=== PATIENT | female | born 2000 | race Caucasian/White ===

== ENCOUNTER 2021-08-21 01:45 | Emergency (ER) | payer MEDICAID ==
[~2021-08-21] VITALS: Ht 160 cm; Wt 47.6 kg
[2021-08-21 03:00] VITALS: BP 119/76
== END 2021-08-21 03:45 | disposition home or self-care (01) ==
LOC: ER 01:47
DX: R07.89 Other chest pain (principal); K21.00 Gastro-esophageal reflux disease with esophagitis, without bleeding; M25.511 Pain in right shoulder; R68.84 Jaw pain
CPT/HCPCS: 93005

== ENCOUNTER 2024-08-27 22:46 | Inpatient (IN) | payer MEDICAID ==
[~2024-08-27] VITALS: Ht 157.5 cm; Wt 44.3 kg
--- NOTE | 2024-08-27 23:10 | ED.PDOC ---
GI ASSESSMENT HPI Comments 24-year-old female who came to ER for nausea and vomiting. Patient states for the past 3 days she has loss of appetite. Few hours ago patient started having epigastric abdominal pain, constant, sharp, associated bouts of nausea, vomiting, and loose nonbloody diarrhea. Patient denies being . Denies any history of abdominal surgeries. Chief Complaint: Nausea/Vomiting Time Seen by MD: 23:09 Primary Care Provider: Yassine Reviewed Notes: Nurses Notes Allergies: Coded Allergies: NO KNOWN ALLERGIES (Unverified , 08/21/21) Information Source: Patient Mode of Arrival: Ambulatory Timing: Days Duration: Intermittent Prehospital treatment: None Quality: Aching, Sharp Vomitus: Watery Stool: Loose, Watery Recent: None Recent Hx of: None Pain Location: Epigastric Modifying Factors: Nothing Associated sign and symptoms: Nausea, Vomiting, Diarrhea, Epitaxis, Anorexia Past Medical History PAST MEDICAL HISTORY: Denies Surgical History: Denies all surgeries HIDES SOAKER History: No Pertinent HIDES SOAKER History Family History Family History: Reviewed,noncontributory to illness Social History Smoker: Non-Smoker Alcohol: Denies ETOH Use Drugs: Marijuana Lives In: Home Constitutional: denies: chills, diaphoresis, fatigue, fever, malaise, sweats, weakness, others EENTM: denies: blurred vision, double vision, ear bleeding, ear discharge, ear drainage, ear pain, ear ringing, eye pain, eye redness, hearing loss, mouth pain, mouth swelling, nasal discharge, nose bleeding, nose congestion, nose pain, photophobia, tearing, throat pain, throat swelling, voice changes, others Respiratory: denies: cough, hemoptysis, orthopnea, SOB at rest, shortness of breath, SOB with excertion, stridor, wheezing, others Cardiovascular: denies: chest pain, dizzy spells, diaphoresis, Dyspnea on exertion, edema, irregular heart beat, left arm pain, lightheadedness, palpitations, PND, syncope, others Gastrointestinal: reports: abdominal pain, diarrhea, nausea, poor appetite, vomiting; denies: abdomen distended, blood streaked bowels, constipated, dysphagia, difficulty swallowing, hematemesis, melena, poor fluid intake, rectal bleeding, rectal pain, others Genitourinary: denies: abnormal vagina bleeding, burning, dyspareunia, dysuria, flank pain, frequency, hematuria, incontinence, pain, , vagina discharge, urgency, others Neurological: denies: dizziness, fainting, headache, left sided numbness, left sided weakness, numbness, paresthesia, pre-existing deficit, right sided numbness, right sided weakness, seizure, speech problems, tingling, tremors, w eakness, others Musculoskeletal: denies: back pain, gout, joint pain, joint swelling, muscle pain, muscle stiffness, neck pain, others Integumetry: denies: bruises, change in color, change in hair/nails, dryness, laceration, lesions, lumps, rash, wounds, others Allergic/Immunocompromised: denies: Difficulty Healing, Frequent Infections, Hives, Itching, others Hematologic/Lymphatic: denies: anemia, blood clots, easy bleeding, easy bruising, swollen glands, others Endocrine: denies: excessive hunger, excessive sweating, excessive thirst, excessive urination, flushing, intolerance to cold, intolerance to heat, unexplained weight gain, unexplained weight loss, others Psychiatric: denies: anxiety, bipolar disorder, depression, hopeless, panic disorder, schizophrenia, sleepless, suicidal, others Physical Exam General Appearance: No Apparent Distress, Normal HEENT: Normal ENT Inspection, Pharynx Normal, TMs Normal Neck: Full Range of Motion, Non-Tender, Normal, Normal Inspection Respiratory: Chest Non-Tender, Lungs Clear, No Accessory Muscle Use, No Respiratory Distress, Normal Breath Sounds Cardiovascular: No Edema, No JVD, No Murmur, No Gallop, Normal Peripheral Pulses, Regular Rate/Rhythm Breast Exam: Deferred Gastrointestinal: Epigastric, No Organomegaly, No Pulsatile Mass, Normal Bowel Sounds, Soft, Tenderness Genitalia: Deferred Pelvic: Deferred Rectal: Deferred Extremities: No calf tenderness, Normal capillary refill, Normal inspection, Normal range of motion, Non-tender, No pedal edema Musculoskeletal : Apperance: Normal 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 Was a procedure done?: No GI differential Dx Differential Diagnosis: Diverticular disease, Gastritis/PUD, Gastroenteritis, Pancreatitis, UTI, Urolithiasis X-Ray, Labs, Meds, VS Vital Signs Date Time Temp Pulse Resp B/P (MAP) Pulse Ox O2 Delivery O2 Flow Rate FiO2 08/28/24 00:23 72 16 98 Room Air 08/28/24 00:21 98.6 72 16 138/83 (101) 98 98.6 08/27/24 22:56 97.5 69 22 147/99 (115) 100 Lab Test 08/27/24 23:12 08/27/24 23:00 Range/Units White Blood Count 19.6 H 4.4-10.8 10^3/uL Red Blood Count 4.95 4.0-5.20 10^6/uL Hemoglobin 16.0 12.2-16.2 g/dL Hematocrit 46.7 H 36.0-46.0 % Mean Corpuscular Volume 94.3 80.0-100.0 fL Mean Corpuscular Hemoglobin 32.4 H 28.0-32.0 pg Mean Corpuscular Hemoglobin Concent 34.3 32.0-36.0 g/dL Red Cell Distribution Width 12.8 11.8-14.3 % Platelet Count 378 140-450 10^3/uL Mean Platelet Volume 8.4 6.9-10.8 fL Neutrophils (%) (Auto) 37.0-80.0 % Lymphocytes (%) (Auto) 10.0-50.0 % Monocytes (%) (Auto) 0.0-12.0 % Basophils (%) (Auto) 0.0-2.0 % Neutrophils # (Auto) 1.6-8.6 10 ^3/uL Lymphocytes # (Auto) 0.4-5.4 10 ^3/uL Monocytes # (Auto) 0-1.3 10 ^3/uL Differential Total Cells Counted Pending Neutrophils % (Manual) Pending Band Neutrophils % (Manual) Pending Lymphocytes % (Manual) Pending Monocytes % (Manual) Pending Eosinophils % (Manual) Pending Basophils % (Manual) Pending Metamyelocytes % (manual) Pending Myelocytes % (Manual) Pending Promyelocytes % (Manual) Pending Blast Cells % (Manual) Pending Reactive Lymphocytes Pending Platelet Estimate Pending Sodium Level 138 136-145 mmol/L Potassium Level 5.2 H 3.5-5.1 mmol/L Chloride Level 104 98-107 mmol/L Carbon Dioxide Level 18 L 20-31 mmol/L Anion Gap 16 H 5-15 Blood Urea Nitrogen 16 9-23 mg/dL Creatinine 1.04 H 0.550-1.02 mg/dL Glomerular Filtration Rate Calc 77 >90 mL/min BUN/Creatinine Ratio 15.4 10.0-20.0 Serum Glucose 123 H 74-106 mg/dL Calcium Level 11.1 H 8.7-10.4 mg/dL Lipase 27 12-53 U/L Urine Color Light-brown Yellow Urine Clarity Turbid H Clear Urine pH 5.5 5.0-9.0 Urine Specific [place] 1.031 1.001-1.035 Urine Protein 2+ H Negative Urine Ketones 4+ H Negative Urine Blood 3+ H Negative /uL Urine Nitrite Negative Negative Urine Bilirubin Negative Negative Urine Urobilinogen Normal Negative mg/dL Urine Leukocyte Esterase 2+ Negative /uL Urine RBC 126 0 - 4 /hpf Urine WBC 51 0 - 5 /hpf Urine Squamous Epithelial Cells Few <5 /hpf Urine Bacteria Few H None Seen /hpf Urine Hyaline Casts Few 0 - 2 /lpf Urine Mucus Few None Seen Urine Glucose Normal Normal mg/dL Urine Test Negative Negative Urine Opiates Screen Neg NEGATIVE Urine Fentanyl Screen Neg NEGATIVE Urine Barbiturates Screen Neg NEGATIVE Urine Phencyclidine Screen Neg NEGATIVE Urine Amphetamines Screen Neg NEGATIVE Urine Benzodiazepines Screen Neg NEGATIVE Urine Cocaine Screen Neg NEGATIVE Urine Cannabinoids Screen Pos NEGATIVE Current Medications Medications (Trade) Dose Ordered Sig/Janet Route Start Time Stop Time Status Last Admin Sodium Chloride 1,000 ml @ 1,000 mls/hr Q1H ONCE IV 08/27/24 23:15 08/28/24 00:14 DC 08/28/24 00:13 Ondansetron HCl (Zofran) 4 mg ONCE ONCE IV 08/27/24 23:15 08/27/24 23:16 DC 08/28/24 00:11 Famotidine (Pepcid Injection) 20 mg ONCE ONCE IV 08/27/24 23:15 08/27/24 23:16 DC 08/28/24 00:12 Time of 1ST Reevaluation: 23:07 Reevaluation 1ST: Unchanged Patient Education/Counseling: Diagnosis, Treatment Family Education/Counseling: No Family Present Departure 1 Departure Time of Disposition: 01:20 (Patient presented with abdominal pain that was concerning for possible appendicits, gastritis, cholecystitis, colitis, gastroenteritis, sbo, or orther possible surgical emergency. Data: 1. I ordered and reviewed the result of at least 3 labs including a CBC, BMP, and Urinalysis. 2. I independently interpreted the following tests: Ultrasound is concerning for hepatitis.Risk:This patient has a high risk of morbidity due to further diagnostic testing or treatment and may suffer from an acute abdominal process disorder. Workup reveals concern for hepatitis or infectious colitis and patient should be admitted for further workup. and possible expert consultation. ) Impression: Primary Impression: Acute epigastric pain Additional Impression: Projectile vomiting with nausea Disposition: ADMITTED INPATIENT Admit to: Med Surg Condition: Serious Critical Care Note Critical Care Time?: Yes Critical care comment: Acute abdominal pain Authorized and Performed by: Savannah Samayoa MD Total critical care time: Approximately 38 minutes Due to a high probability of clinically significant, life threatening deter ioration, the patient required my highest level of preparedness to intervene emergently and I personally spent this critical care time directly and personally managing the patient. This critical care time included obtaining a history; examining the patient; pulse oximetry; ordering and review of studies; arranging urgent treatment with development of a management plan; evaluation of patient's response to treatment; frequent reassessment; and, discussions with other providers. This critical care time was performed to assess and manage the high probability of imminent, life-threatening deterioration that could result in multi-organ fa ilure. It was exclusive of separately billable procedures and treating other patients and teaching time. Please see my other sections and the rest of the note for further information on patient assessment and treatment. Stability Stability form required: No Heart Score Heart Score: Heart Score Response (Comments) Value History N/A 0 EKG N/A 0 Age N/A 0 Risk Factors N/A 0 Troponin N/A 0 Total 0 I personally scribed for SAVANNAH SAMAYOA MD ([email or web address]) on 08/27/24 at 23:10. Electronically submitted by Brennen Harris ([email or web address]). SAVANNAH SAMAYOA MD Aug 27, 2024 23:10
[2024-08-27 23:20] LABS: Urine Bacteria FEW /hpf (None Seen); Urine Blood 3+ /uL (Negative); Urine Clarity Turbid (Clear); Urine Color Light-Brown (Yellow); Urine Hyaline Cast FEW /lpf (0 - 2); Urine Mucus FEW (None Seen); Urine Protein, UAD 2+ (Negative); Urine Specific Gravity 1.031 (1.001-1.035); Urine Urobilinogen Normal (Negative); Urine WBC 51 /hpf (0 - 5); Urine pH 5.5 (5.0-9.0)
[2024-08-27 23:21] LABS: Amphetamine Screen, Urine Neg (NEGATIVE); Benzodiazephine Screen, Urine Neg (NEGATIVE); Cannabinoid Screen, Urine Pos (NEGATIVE); Cocaine Screen, Urine Neg (NEGATIVE); Opiate Scree,Urine Neg (NEGATIVE); Phencyclidine Screen, Urine Neg (NEGATIVE)
[2024-08-27 23:30] LABS: Barbiturate Scree,Urine Neg (NEGATIVE)
[2024-08-27 23:33] LABS: Hematocrit 46.7 % (36.0-46.0); Mean Corpuscular Hemoglobin 32.4 pg (28.0-32.0); Mean Corpuscular Hgb Conc. 34.3 g/dL (32.0-36.0); Mean Corpuscular Volume 94.3 fL (80.0-100.0); Platelet Count (auto) 378 10^3/uL (140-450); Red Blood Cells 4.95 10^6/uL (4.0-5.20); Red Cell Distribution Width 12.8 % (11.8-14.3); White Blood Cell 19.6 10^3/uL (4.4-10.8)
[2024-08-27 23:34] LABS: Basophils % (manual) 0 (0.0-2.0); Blast Cells 0; Eosinophils % (manual) 0 (0-7); Metamyelocytes % 0; Myelocytes % 0; Promyelocytes % 0
[2024-08-27 23:37] LABS: Chloride 104 mmol/L (98-107); Potassium 5.2 mmol/L (3.5-5.1); Sodium 138 mmol/L (136-145)
[2024-08-27 23:38] LABS: Anion Gap 16 (5-15); Calcium 11.1 mg/dL (8.7-10.4); Carbon Dioxide 18 mmol/L (20-31)
[2024-08-27 23:43] LABS: BUN/Creatinine Ratio 15.4 (10.0-20.0); Blood Urea Nitrogen 16 mg/dL (9-23); Glucose 123 mg/dL (74-106); Lipase 27 U/L (12-53)
[2024-08-28] MEDS: ONDANSETRON HCL 4 MG/2 ML VIAL IV ONE (00:11)
[2024-08-28] MEDS: FAMOTIDINE (10MG/ML) 2ML VL IV ONE (00:12)
[2024-08-28] MEDS: SODIUM CHLORIDE 0.9% 1,000 ML IV ONE (00:13)
--- NOTE | 2024-08-28 00:47 | DVH ---
RIGHT UPPER QUADRANT ABDOMINAL ULTRASOUND CLINICAL HISTORY: ruq pain COMPARISON: None TECHNIQUE: Grayscale and color Doppler ultrasound imaging of the right upper quadrant is performed. FINDINGS: Pancreas: Visualized portions appear grossly unremarkable. Liver: Starry dominique ( centrilobular) appearance of the liver is noted. No discrete hepatic lesions as v isualized. The portal vein appears patent. Gallbladder: 4 mm intraluminal echogenic structure near the gallbladder neck. No sonographic Ward's sign reported. No gallbladder wall thickening. Common bile duct: Nondilated. Right Kidney: Measures 9.4 cm in length. No hydronephrosis. Right upper quadrant Inferior vena cava: Visualized portions appear patent. IMPRESSION: Centrilobular pattern of the liver. Although this is usually seen with acute hepatitis, the different ial diagnosis is broad and includes various other infiltrative, inflammatory and infectious processes . Please correlate clinically. Small gallbladder polyp versus adherent calculus near the neck. No other sonographic evidence of chol ecystitis at this time. HS:Y
[2024-08-28 01:22] LABS: Band Neutrophils % (manual) 1; Lymphocytes % (manual) 3 (10.0-50.0); Monocytes % (manual) 1 (0-12); Platelet Estimate Adequate; Reactive Lymphocytes 1; Smudge Cells 3 /100 WBC
[2024-08-28] MEDS: MORPHINE SULFATE 4 MG/ML SYR/VIAL IV ONE (01:30)
[2024-08-28 01:55] VITALS: PULSE 74; RESP 16; O2SAT 98
[2024-08-28] MEDS: metroNIDAZOLE 500MG/100ML 100 ML IV ONE (02:05)
[2024-08-28 02:08] LABS: Alanine Aminotransferase 45 U/L (7-40); Albumin 4.7 g/dL (3.2-4.8); Alkaline Phosphatase 55 U/L (46-116); Anion Gap 15 (5-15); Aspartate Aminotransferase 29 U/L (13-40); BUN/Creatinine Ratio 18.4 (10.0-20.0); Blood Urea Nitrogen 16 mg/dL (9-23); Calcium 9.3 mg/dL (8.7-10.4); Carbon Dioxide 18 mmol/L (20-31); Chloride 108 mmol/L (98-107); Glucose 88 mg/dL (74-106); Potassium 4.1 mmol/L (3.5-5.1); Sodium 141 mmol/L (136-145); Total Protein 6.9 g/dL (5.7-8.2)
[2024-08-28] MEDS: ceFAZolin 2 GM/D5W50ml 50 ML IV ONE (03:07)
[2024-08-28] MEDS ORDERED: HYDROcodone-ACET 5/325MG TAB PO PRN (04:30)
[2024-08-28] MEDS ORDERED: MORPHINE SULFATE INJ 2 MG/ml SYRG IV PRN ×2 (04:30)
[2024-08-28] MEDS ORDERED: ONDANSETRON HCL 4 MG/2 ML VIAL IV PRN (04:30)
[2024-08-28] MEDS ORDERED: NITROGLYCERIN 0.4 MG SL TAB SL PRN (04:30)
[2024-08-28] MEDS ORDERED: ACETAMINOPHEN 325 MG TAB PO PRN (04:30)
[2024-08-28] MEDS: SODIUM CHLORIDE 0.9% 1,000 ML IV SCH (04:44)
--- NOTE | 2024-08-28 04:49 | DVHHPRES ---
History of Present Illness Resident Creating Document: GEORGIE CARTAGENA RESIDENT History of Present Illness This is a 24-year-old female with no significant past medical history presented to the ED with a chief complaint nausea and vomiting more than 7 times since morning prior to this admission. She states that for last 2 days she lost her appetite and started today epigastric pain which is central, localized ,7/10 ,colicky in nature and associated with nausea and vomiting and 1 episode of loose stool without any aggravating and relieving factors. She is currently menstruating and mentioned never had this type of pain before. Patient denies chest pain, shortness of breath, dizziness, blood in urine, dysuria, any sick contact or any traveling history recently. She also denies eating any outside food or trying any new food. Past Medical History None Past Surgical History None Family History None Past Social History Smoke weeds every day, nonalcoholic and never tried any other drugs Lives with parents Review of Systems Constitutional: No: Fever, Chills, Sweats, Weakness, Malaise, Other Eyes: No: Pain, Vision change, Conjunctivae inflammation, Eyelid inflammation, Other, Redness ENT: No: Ear pain, Ear discharge, Nose pain, Nose discharge, Nose congestion, Mouth pain, Mouth swelling, Throat pain, Throat swelling, Other Respiratory: No: Cough, Dry, Shortness of breath, SOB with excertion, Wheezing, Hemoptysis, Pleuritic Pain, Sputum, Wheezing, Other Cardiovascular: No: Chest Pain, Palpitations, Orthopnea, Paroxysmal Noc. Dyspnea, Edema, Lt Headedness, Other Gastrointestinal: Nausea, Vomiting, Abdominal Pain, Diarrhea; No: Constipation, Melena, Hematochezia, Other Genitourinary: No Dysuria, No Frequency, No Incontinence, No Hematuria, No Retention, No Other Musculoskeletal: No: other, neck pain, shoulder pain, arm pain, back pain, hand pain, leg pain, foot pain Skin: No: Rash, Lesions, Jaundice, Bruising, Other Neurological: No: Weakness, Numbness, Incoordination, Change in speech, Confusion, Seizures, Other Allergies: Coded Allergies: NO KNOWN ALLERGIES (Unverified , 08/21/21) Medications Current Medications Medications Dose Ordered Sig/Jaent Route Start Time Stop Time Status Last Admin Dose Admin Sodium Chloride 10 ml Q8HR IV 08/28/24 06:00 Sodium Chloride 1,000 ml @ 75 mls/hr [id number] IV 08/28/24 04:30 08/28/24 04:44 75 MLS/HR Acetaminophen 325 mg Q4HP PRN PO 08/28/24 04:30 Acetaminophen/ Hydrocodone Bitart 1 tab Q4HP PRN PO 08/28/24 04:30 Ondansetron HCl 4 mg Q4HP PRN IV 08/28/24 04:30 Morphine Sulfate 2 mg Q4HPRN PRN IV 08/28/24 04:30 Nitroglycerin 0.4 mg Q5MINP PRN SL 08/28/24 04:30 Morphine Sulfate 2 mg Q30M PRN IV 08/28/24 04:30 Cefazolin Sodium 50 ml @ 100 mls/hr DAILY@2200 IV 08/28/24 22:00 Metronidazole 100 ml @ 100 mls/hr TID IV 08/28/24 06:00 Clotrimazole 1 applic BID TOP 08/28/24 10:00 Exam Vital Signs Vital Signs Date Time Temp Pulse Resp B/P (MAP) Pulse Ox O2 Delivery O2 Flow Rate FiO2 08/28/24 04:00 68 20 98/51 (67) 96 08/28/24 01:55 99.7 99.7 08/28/24 01:55 Room Air* 0 21 Exam Physical examination: General Appearance: Alert, Oriented X3, Cooperative, No acute distress HEENT: Atraumatic, PERRLA, EOMI, Mucous membrane moist/pink Respiratory: Clear to auscultation, Normal air movement Cardiovascular: Regular rate, Normal S1, Normal S2, No murmurs, no chest wall tenderness Abdominal: Normal bowel sounds, Soft, No tenderness, No hepatospenomegaly, No masses Extremities: No clubbing, No cyanosis, No edema, Normal pulses, No tenderness/swelling Skin: Circular lesion in the front of the right thigh, No breakdown, No significant lesion Neuro: Normal gait, Normal speech, Strength at 5/5 X4 ext, Normal tone, Sensation intact. Psych/Mental Status: Mental status NL, Mood NL Labs/Xrays Labs Test 08/28/24 01:27 08/27/24 23:12 08/27/24 23:00 Range/Units Sodium Level 141 136-145 mmol/L Potassium Level 4.1 3.5-5.1 mmol/L Chloride Level 108 H 98-107 mmol/L Carbon Dioxide Level 18 L 20-31 mmol/L Anion Gap 15 5-15 Blood Urea Nitrogen 16 9-23 mg/dL Creatinine 0.87 0.550-1.02 mg/dL Glomerular Filtration Rate Calc 96 >90 mL/min BUN/Creatinine Ratio 18.4 10.0-20.0 Serum Glucose 88 74-106 mg/dL Calcium Level 9.3 8.7-10.4 mg/dL Total Bilirubin 1.0 0.2-1.0 mg/dL Aspartate Amino Transferase (AST) 29 13-40 U/L Alanine Aminotransferase (ALT) 45 H 7-40 U/L Alkaline Phosphatase 55 46-116 U/L Total Protein 6.9 5.7-8.2 g/dL Albumin 4.7 3.2-4.8 g/dL White Blood Count 19.6 H 4.4-10.8 10^3/uL Red Blood Count 4.95 4.0-5.20 10^6/uL Hemoglobin 16.0 12.2-16.2 g/dL Hematocrit 46.7 H 36.0-46.0 % Mean Corpuscular Volume 94.3 80.0-100.0 fL Mean Corpuscular Hemoglobin 32.4 H 28.0-32.0 pg Mean Corpuscular Hemoglobin Concent 34.3 32.0-36.0 g/dL Red Cell Distribution Width 12.8 11.8-14.3 % Platelet Count 378 140-450 10^3/uL Mean Platelet Volume 8.4 6.9-10.8 fL Neutrophils (%) (Auto) 37.0-80.0 % Lymphocytes (%) (Auto) 10.0-50.0 % Monocytes (%) (Auto) 0.0-12.0 % Basophils (%) (Auto) 0.0-2.0 % Neutrophils # (Auto) 1.6-8.6 10 ^3/uL Lymphocytes # (Auto) 0.4-5.4 10 ^3/uL Monocytes # (Auto) 0-1.3 10 ^3/uL Differential Total Cells Counted 100.0 100 Neutrophils % (Manual) 94 H 37.0-80.0 Band Neutrophils % (Manual) 1 Lymphocytes % (Manual) 3 L 10.0-50.0 Monocytes % (Manual) 1 0-12 Eosinophils % (Manual) 0 0-7 Basophils % (Manual) 0 0.0-2.0 Metamyelocytes % (manual) 0 Myelocytes % (Manual) 0 Promyelocytes % (Manual) 0 Blast Cells % (Manual) 0 Reactive Lymphocytes 1 Smudge Cells 3 /100 WBC Platelet Estimate Adequate Lipase 27 12-53 U/L Urine Color Light-brown Yellow Urine Clarity Turbid H Clear Urine pH 5.5 5.0-9.0 Urine Specific [place] 1.031 1.001-1.035 Urine Protein 2+ H Negative Urine Ketones 4+ H Negative Urine Blood 3+ H Negative /uL Urine Nitrite Negative Negative Urine Bilirubin Negative Negative Urine Urobilinogen Normal Negative mg/dL Urine Leukocyte Esterase 2+ Negative /uL Urine RBC 126 0 - 4 /hpf Urine WBC 51 0 - 5 /hpf Urine Squamous Epithelial Cells Few <5 /hpf Urine Bacteria Few H None Seen /hpf Urine Hyaline Casts Few 0 - 2 /lpf Urine Mucus Few None Seen Urine Glucose Normal Normal mg/dL Urine Test Negative Negative Urine Opiates Screen Neg NEGATIVE Urine Fentanyl Screen Neg NEGATIVE Urine Barbiturates Screen Neg NEGATIVE Urine Phencyclidine Screen Neg NEGATIVE Urine Amphetamines Screen Neg NEGATIVE Urine Benzodiazepines Screen Neg NEGATIVE Urine Cocaine Screen Neg NEGATIVE Urine Cannabinoids Screen Pos NEGATIVE Assessment/Plan Assessment/Plan Assessment and plan: # Intractable nausea and vomiting likely secondary to hepatitis/diverticulitis - Patient is on clear liquid diet and will advanced the diet as tolerated - WBC count is elevated with left shift - IV normal saline at 75 mL/hour - IV ondansetron 4 mg q.4 p.r.n. - U/S of GB revealed polyp versus possible stone in the neck of the gallbladder without any sign of cholecystitis . - Ordered hepatitis panel to rule out acute hepatitis - ALT is mildly elevated and will recheck CMP on 08/29/24 # Possible acute cystitis - Ordered another U/A to rule out UTI - Ordered urine bacterial culture # Fungal infection possible ringworm in the thigh - Clotrimazole topical ointment, apply in the affected area b.i.d. Goal of care discussed with the patient for more than 23 minutes full code Plan of treatment discussed with Dr. Sanches Plan discussed with: Patient, Other My Orders Orders - GEORGIE CARTAGENA RESIDENT Procedure Category Date Status Time Admit ADMIT 08/28/24 Transmitted 04:28 Allergies MILO 08/28/24 In Process 04:28 Code Status CODE 08/28/24 Transmitted 04:28 Sodium Chloride Lock PHA 08/28/24 In Process (Saline Lock Ns) 06:00 Sodium Chloride 0.9% PHA 08/28/24 In Process 04:30 Oxygen Per Hour RT 08/28/24 Transmitted 04:28 Acetaminophen Tablet PHA 08/28/24 In Process (Tylenol Tablet) 04:30 Hydrocodone-Acet PHA 08/28/24 In Process 5/325mg Tab (Hepzibah 04:30 Ondansetron Hcl PHA 08/28/24 In Process (Zofran) 04:30 Complete Blood Count LAB 08/29/24 Verified 04:00 Comprehensive LAB 08/29/24 Verified Metabolic Panel 04:00 Npo (Nothing By DIET 08/28/24 Transmitted Mouth) Diet Breakfast Morphine Sulfate PHA 08/28/24 In Process Injection 04:30 Nitroglycerin PHA 08/28/24 In Process Sublingual (Ntrostat 04:30 Morphine Sulfate PHA 08/28/24 In Process Injection 04:30 Oxygen By Nasal RT 08/28/24 Transmitted Cannula 04:28 Stat Ekg For Chest MILO 08/28/24 In Process Pain 04:28 Notify Md Of Changes MILO 08/28/24 In Process From Base 04:28 Window Decorator For MILO 08/28/24 In Process 24 Hours 04:28 Emergency Dysrhythmia MILO 08/28/24 In Process Protocol 04:28 Rhythm Strips Once MILO 08/28/24 In Process Every Shift 04:28 Cefazolin 1gm/50ml PHA 08/28/24 In Process (Ancef) 22:00 Metronidazole PHA 08/28/24 In Process 500mg/100ml (Flagyl 06:00 Urine Bacterial JOHN 08/28/24 Logged Culture 04:41 Thyroid Stimulating LAB 08/28/24 Logged Hormone 04:41 Chest Portable XY 08/28/24 Logged 04:45 Clotrimazole 1% PHA 08/28/24 Logged Topical Cream 10:00 Comprehensive LAB 08/28/24 Verified Hepatitis Panel 04:47 Rapid Influenza A&B LAB 08/28/24 Verified 04:47 Covid19 Antigen Yenni LAB 08/28/24 Verified Date of Service: Aug 28, 2024 Billing Provider: MAXINE SANCHES MD Common Visit Codes: [id number] INP/OBS CARE (HIGH) Coding Comment Comment Attending attestation I saw and evaluated the patient. I reviewed the residents note and agree with findings and plan as documented in the residents note. Contaminated UA, doubt UTI Acute gastroenteritis, likely viral Transaminitis Leukocytosis Tinea corporis Advance diet as tolerated Repeat UA Discontinue antibiotics Hepatitis workup Antifungal cream Rest as per resident note GEORGIE CARTAGENA RESIDENT Aug 28, 2024 04:49 MAXINE SANCHES MD Aug 28, 2024 09:19
--- NOTE | 2024-08-28 05:19 | DVH ---
CHEST RADIOGRAPH Indication:chest pain Technique: Single frontal view of the chest was obtained COMPARISON: None FINDINGS: Lines and Tubes: None Lungs: Congestion Pleura: No effusion. No pneumothorax. Cardiomediastinal contours: Unremarkable Bones: Unremarkable IMPRESSION: Congestion
[2024-08-28] MEDS: metroNIDAZOLE 500MG/100ML 100 ML IV SCH (05:33)
[2024-08-28] MEDS: SODIUM CHLOR 0.9% PF (SALINE LOCK) 10ML VIAL/SYR IV SCH (05:33)
[2024-08-28 07:30] VITALS: PULSE 71; RESP 18; O2SAT 95
[2024-08-28 08:05] LABS: Rapid Influenza A Negative (Negative); Rapid Influenza B Negative (Negative)
[2024-08-28 08:06] LABS: COVID19 ANTIGEN SOFIA FIA NEGATIVE (NEGATIVE)
--- NOTE | 2024-08-28 08:54 | DVHPN2 ---
Progress Note Date Seen: Aug 28, 2024 Medical Necessity Reason Pt with a Central, PICC or Fol: No Subjective Review of Systems: CVS:Normal, RESPIRATORY:Normal, GI:Normal, :Normal, NEURO:Normal Objective vital signs Vital Sign Date Time Temp Pulse Resp B/P (MAP) Pulse Ox O2 Delivery O2 Flow Rate FiO2 08/28/24 07:30 98.9 71 18 91/46 (61) 95 98.9 08/28/24 07:30 Room Air* 0 21 Total Intake and Output 08/27/24 08/27/24 08/28/24 15:00 23:00 07:00 Intake Total 1300 ml Balance 1300 ml medications Current Medications Medications Dose Ordered Sig/Janet Route Start Time Stop Time Status Last Admin Dose Admin Sodium Chloride 10 ml Q8HR IV 08/28/24 06:00 08/28/24 05:33 10 ML Sodium Chloride 1,000 ml @ 75 mls/hr [id number] IV 08/28/24 04:30 08/28/24 04:44 75 MLS/HR Acetaminophen 325 mg Q4HP PRN PO 08/28/24 04:30 Acetaminophen/ Hydrocodone Bitart 1 tab Q4HP PRN PO 08/28/24 04:30 Ondansetron HCl 4 mg Q4HP PRN IV 08/28/24 04:30 Morphine Sulfate 2 mg Q4HPRN PRN IV 08/28/24 04:30 Nitroglycerin 0.4 mg Q5MINP PRN SL 08/28/24 04:30 Morphine Sulfate 2 mg Q30M PRN IV 08/28/24 04:30 Clotrimazole 1 applic BID TOP 08/28/24 10:00 Examination: GENERAL:Normal, LUNGS:Normal, CVS:Normal, ABDOMEN:Normal, SKIN:Normal, NEURO:Normal laboratory and microbiology Laboratory Tests 08/28/24 01:27 08/27/24 23:12 Test 08/28/24 01:27 Range/Units Serum Glucose 88 74-106 mg/dL Labs and/or images reviewed: Labs reviewed by me, Image(s) reviewed by me Problem List/Assessment/Plan Problem List/Assessment/Plan 1. Acute cystitis with hematuria IV antibiotics, pending urine culture 2. Ringworm to thigh Clotrimazole cream 3. Intractable nausea and vomiting likely secondary to cannabis induced hyperemesis IV fluids, GI consult, supportive care, pending hepatitis panel 4. Leukocytosis no sepsis no sirs likely from inflammation Monitor Subjective: Patient is awake and alert Objective: Patient was admitted for intractable nausea and vomiting which is likely related to cannabis induced hyperemesis. Abdominal ultrasound showed concerns for acute hepatitis however LFTs are mildly elevated, hepatitis is unlikely. Hepatitis panel is pending. Patient is pending GI consult. Patient was also found to have acute cystitis and is on IV Rocephin. Plan: Pending GI consult, continue IV fluids and IV antibiotics, continue supportive care, awaiting hepatitis panel and urine culture Plan discussed with: Patient My Orders My Orders Orders - TEQUILA MURRAY Procedure Category Date Status Time *Consult Dr. Real CONS 08/28/24 Transmitted [place] 08:09 Date of Service: Aug 28, 2024 Billing Provider: GIBSON RAMOS MD Common Visit Codes: [id number] INP/OBS CARE (MOD) TEQUILA MURRAY Aug 28, 2024 08:54
[2024-08-28] MEDS: CLOTRIMAZOLE 1 % CREAM 15GM TOP SCH (09:49)
[2024-08-28 12:08] LABS: Basophils # (auto) 0 10 ^3/uL (0-0.2); Basophils % (auto) 0.1 % (0.0-2.0); Eosinophils # (auto) 0 10 ^3/uL (0-0.8); Hematocrit 38.1 % (36.0-46.0); Lymphocytes # (auto) 1.3 10 ^3/uL (0.4-5.4); Lymphocytes % (auto) 7.8 % (10.0-50.0); Mean Corpuscular Hemoglobin 32.2 pg (28.0-32.0); Mean Corpuscular Hgb Conc. 34.2 g/dL (32.0-36.0); Mean Corpuscular Volume 94.1 fL (80.0-100.0); Monocytes # (auto) 1.2 10 ^3/uL (0-1.3); Monocytes % (auto) 7.4 % (0.0-12.0); Neutrophils % (auto) 84.7 % (37.0-80.0); Platelet Count (auto) 313 10^3/uL (140-450); Red Blood Cells 4.05 10^6/uL (4.0-5.20); Red Cell Distribution Width 12.7 % (11.8-14.3); White Blood Cell 16.5 10^3/uL (4.4-10.8)
[2024-08-28 12:21] LABS: Alanine Aminotransferase 41 U/L (7-40); Alkaline Phosphatase 50 U/L (46-116); Anion Gap 12 (5-15); BUN/Creatinine Ratio 17.1 (10.0-20.0); Blood Urea Nitrogen 14 mg/dL (9-23); Calcium 9.3 mg/dL (8.7-10.4); Carbon Dioxide 19 mmol/L (20-31); Chloride 109 mmol/L (98-107); Glucose 85 mg/dL (74-106); Sodium 140 mmol/L (136-145)
[2024-08-28 12:22] LABS: Aspartate Aminotransferase 22 U/L (13-40); Bilirubin, Total 0.7 mg/dL (0.2-1.0); Total Protein 6.4 g/dL (5.7-8.2)
[2024-08-28 15:33] VITALS: BP_SYST 103; BP_SYST 105; BP_DIAS 60; BP_DIAS 63; PULSE 60; PULSE 88; RESP 17; RESP 18; TEMP 98.4; TEMP 98.8; O2SAT 98; O2SAT 99
[2024-08-28 17:00] VITALS: BP 105/63; PULSE 88; RESP 17; TEMP 98.8; O2SAT 99
--- NOTE | 2024-08-28 18:16 | DVHINCON2 ---
Date of service: Aug 28, 2024 Referring Physician Sanchez Orellana Reason for Consultation N/V and Abd pain History of Present Illness This is a 24-year-old female with no significant past medical history presented to the ED with a chief complaint nausea and vomiting more than 7 times since morning prior to this admission. She states that for last 2 days she lost her appetite and started today epigastric pain which is central, localized ,7/10 ,colicky in nature and associated with nausea and vomiting and 1 episode of loose stool without any aggravating and relieving factors. She is currently menstruating and mentioned never had this type of pain before. Patient denies chest pain, shortness of breath, dizziness, blood in urine, dysuria, any sick contact or any traveling history recently. She also denies eating any outside food or trying any new food. Patient has being smoking marijuana for about six weeks Past Medical History Past Medical History None Past Surgical History Past Surgical History None Family History: Patient reports no known family medical history. Allergies: Coded Allergies: NO KNOWN ALLERGIES (Unverified , 08/21/21) Current Medications Current Medications Medications (Trade) Dose Ordered Sig/Janet Route PRN Reason Start Time Stop Time Status Last Admin Sodium Chloride (Saline Lock Ns) 10 ml Q8HR IV 08/28/24 06:00 08/28/24 14:01 Sodium Chloride 1,000 ml @ 75 mls/hr [id number] IV 08/28/24 04:30 08/28/24 17:40 Acetaminophen (Tylenol Tablet) 325 mg Q4HP PRN PO MILD PAIN (1-3 PAIN SCALE) 08/28/24 04:30 Acetaminophen/ Hydrocodone Bitart ([place] 5/325MG Tab) 1 tab Q4HP PRN PO MODERATE PAIN (4-6 PAIN SCALE) 08/28/24 04:30 Ondansetron HCl (Zofran) 4 mg Q4HP PRN IV NAUSEA / VOMITING 08/28/24 04:30 Morphine Sulfate 2 mg Q4HPRN PRN IV SEVERE PAIN (7-10 PAIN SCALE) 08/28/24 04:30 Nitroglycerin (Ntrostat Sublingual) 0.4 mg Q5MINP PRN SL FOR CHEST PAIN 08/28/24 04:30 Morphine Sulfate 2 mg Q30M PRN IV FOR CHEST PAIN 08/28/24 04:30 Cefazolin Sodium 50 ml @ 100 mls/hr DAILY@2200 IV 08/28/24 22:00 08/28/24 08:23 DC Metronidazole 100 ml @ 100 mls/hr TID IV 08/28/24 06:00 08/28/24 08:23 DC 08/28/24 05:33 Clotrimazole (Lotrimin 1% Cream) 1 applic BID TOP 08/28/24 10:00 08/28/24 09:49 Vital Signs Vital Signs Date Time Temp Pulse Resp B/P (MAP) Pulse Ox O2 Delivery O2 Flow Rate FiO2 08/28/24 17:00 98.8 88 17 105/63 (77) 99 98.8 08/28/24 07:30 Room Air* 0 21 Physical Exam General Appearance: Alert, Oriented X3, Cooperative, Mild distress HEENT: Atraumatic, PERRLA, EOMI, Mucous membrane moist/pink Respiratory: Clear to auscultation, Normal air movement Cardiovascular: Regular rate, Normal S1, Normal S2, No murmurs, no chest wall tenderness Abdominal: Normal bowel sounds, Soft, No tenderness, No hepatospenomegaly, No masses Extremities: No clubbing, No cyanosis, No edema, Normal pulses, No tenderness/swelling Skin: Circular lesion in the front of the right thigh, No breakdown, No significant lesion Neuro: Normal gait, Normal speech, Strength at 5/5 X4 ext, Normal tone, Sensation intact. Psych/Mental Status: Mental status NL, Mood NL Labs/Diagnostic Data Labs Test 08/28/24 16:17 08/28/24 06:17 08/28/24 06:05 08/28/24 01:57 Range/Units White Blood Count 16.5 H 4.4-10.8 10^3/uL Red Blood Count 4.05 4.0-5.20 10^6/uL Hemoglobin 13.0 # 12.2-16.2 g/dL Hematocrit 38.1 # 36.0-46.0 % Mean Corpuscular Volume 94.1 80.0-100.0 fL Mean Corpuscular Hemoglobin 32.2 H 28.0-32.0 pg Mean Corpuscular Hemoglobin Concent 34.2 32.0-36.0 g/dL Red Cell Distribution Width 12.7 11.8-14.3 % Platelet Count 313 140-450 10^3/uL Mean Platelet Volume 8.9 6.9-10.8 fL Neutrophils (%) (Auto) 84.7 H 37.0-80.0 % Lymphocytes (%) (Auto) 7.8 L 10.0-50.0 % Monocytes (%) (Auto) 7.4 0.0-12.0 % Eosinophils (%) (Auto) 0.0 0.0-7.0 % Basophils (%) (Auto) 0.1 0.0-2.0 % Neutrophils # (Auto) 14.0 H 1.6-8.6 10 ^3/uL Lymphocytes # (Auto) 1.3 0.4-5.4 10 ^3/uL Monocytes # (Auto) 1.2 0-1.3 10 ^3/uL Eosinophils # (Auto) 0 0-0.8 10 ^3/uL Basophils # (Auto) 0 0-0.2 10 ^3/uL Nucleated Red Blood Cells 0.0 % Sodium Level 140 136-145 mmol/L Potassium Level 4.0 3.5-5.1 mmol/L Chloride Level 109 H 98-107 mmol/L Carbon Dioxide Level 19 L 20-31 mmol/L Anion Gap 12 5-15 Blood Urea Nitrogen 14 9-23 mg/dL Creatinine 0.82 0.550-1.02 mg/dL Glomerular Filtration Rate Calc 103 >90 mL/min BUN/Creatinine Ratio 17.1 10.0-20.0 Serum Glucose 85 74-106 mg/dL Hemoglobin A1c 4.9 <5.7 % A1C Calcium Level 9.3 8.7-10.4 mg/dL Total Bilirubin 0.7 0.2-1.0 mg/dL Aspartate Amino Transferase (AST) 22 13-40 U/L Alanine Aminotransferase (ALT) 41 H 7-40 U/L Alkaline Phosphatase 50 46-116 U/L Total Protein 6.4 5.7-8.2 g/dL Albumin 4.0 3.2-4.8 g/dL Vitamin B12 Level 876 211-911 pg/mL Vitamin D 25-Hydroxy 18.2 L 30.0-100 ng/mL Influenza Type A Antigen Negative Negative Influenza Type B Antigen Negative Negative SARS-CoV-2 Antigen (Rapid) Negative NEGATIVE Thyroid Stimulating Hormone (TSH) 0.27 L 0.55-4.78 uIU/mL Test 08/28/24 01:27 11/8/24 23:12 08/27/24 23:00 Range/Units Differential Total Cells Counted 100.0 100 Neutrophils % (Manual) 94 H 37.0-80.0 Band Neutrophils % (Manual) 1 Lymphocytes % (Manual) 3 L 10.0-50.0 Monocytes % (Manual) 1 0-12 Eosinophils % (Manual) 0 0-7 Basophils % (Manual) 0 0.0-2.0 Metamyelocytes % (manual) 0 Myelocytes % (Manual) 0 Promyelocytes % (Manual) 0 Blast Cells % (Manual) 0 Reactive Lymphocytes 1 Smudge Cells 3 /100 WBC Platelet Estimate Adequate Lipase 27 12-53 U/L Urine Color Light-brown Yellow Urine Clarity Turbid H Clear Urine pH 5.5 5.0-9.0 Urine Specific [place] 1.031 1.001-1.035 Urine Protein 2+ H Negative Urine Ketones 4+ H Negative Urine Blood 3+ H Negative /uL Urine Nitrite Negative Negative Urine Bilirubin Negative Negative Urine Urobilinogen Normal Negative mg/dL Urine Leukocyte Esterase 2+ Negative /uL Urine RBC 126 0 - 4 /hpf Urine WBC 51 0 - 5 /hpf Urine Squamous Epithelial Cells Few <5 /hpf Urine Bacteria Few H None Seen /hpf Urine Hyaline Casts Few 0 - 2 /lpf Urine Mucus Few None Seen Urine Glucose Normal Normal mg/dL Urine Test Negative Negative Urine Opiates Screen Neg NEGATIVE Urine Fentanyl Screen Neg NEGATIVE Urine Barbiturates Screen Neg NEGATIVE Urine Phencyclidine Screen Neg NEGATIVE Urine Amphetamines Screen Neg NEGATIVE Urine Benzodiazepines Screen Neg NEGATIVE Urine Cocaine Screen Neg NEGATIVE Urine Cannabinoids Screen Pos NEGATIVE GB USG IMPRESSION: Centrilobular pattern of the liver. Although this is usually seen with acute hepatitis, the differential diagnosis is broad and includes various other infiltrative, inflammatory and infectious processes. Please correlate clinically. Small gallbladder polyp versus adherent calculus near the neck. No other sonographic evidence of cholecystitis at this time. 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
--- NOTE | 2024-08-28 19:21 | ECG ---
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
[2024-08-28 20:00] VITALS: RESP 20; O2SAT 98
[2024-08-28 21:00] VITALS: BP 106/60; PULSE 77; RESP 20; TEMP 98.7; O2SAT 98
[2024-08-28] MEDS ORDERED: ceFAZolin 1GM/50ML 50 ML IV SCH (22:00)
[2024-08-29 01:00] VITALS: BP 105/43; PULSE 50; RESP 20; TEMP 98.7; O2SAT 100
[2024-08-29 05:00] VITALS: BP 104/46; PULSE 60; RESP 20; TEMP 98.6; O2SAT 98
[2024-08-29 06:53] LABS: Basophils # (auto) 0.1 10 ^3/uL (0-0.2); Basophils % (auto) 0.9 % (0.0-2.0); Eosinophils # (auto) 0 10 ^3/uL (0-0.8); Eosinophils % (auto) 0.5 % (0.0-7.0); Hematocrit 38.3 % (36.0-46.0); Hemoglobin 13.1 g/dL (12.2-16.2); Lymphocytes # (auto) 2.2 10 ^3/uL (0.4-5.4); Mean Corpuscular Hemoglobin 32.6 pg (28.0-32.0); Mean Corpuscular Hgb Conc. 34.2 g/dL (32.0-36.0); Mean Corpuscular Volume 95.2 fL (80.0-100.0); Monocytes # (auto) 0.5 10 ^3/uL (0-1.3); Monocytes % (auto) 7.6 % (0.0-12.0); Neutrophils # (auto) 4.1 10 ^3/uL (1.6-8.6); Platelet Count (auto) 250 10^3/uL (140-450); Red Blood Cells 4.03 10^6/uL (4.0-5.20); Red Cell Distribution Width 12.7 % (11.8-14.3)
[2024-08-29 07:11] LABS: Alanine Aminotransferase 32 U/L (7-40); Albumin 3.7 g/dL (3.2-4.8); Alkaline Phosphatase 44 U/L (46-116); Anion Gap 4 (5-15); Aspartate Aminotransferase 15 U/L (13-40); BUN/Creatinine Ratio 12.7 (10.0-20.0); Bilirubin, Total 0.8 mg/dL (0.2-1.0); Blood Urea Nitrogen 10 mg/dL (9-23); Calcium 9.1 mg/dL (8.7-10.4); Carbon Dioxide 27 mmol/L (20-31); Chloride 113 mmol/L (98-107); Glucose 84 mg/dL (74-106); Potassium 4.4 mmol/L (3.5-5.1); Sodium 144 mmol/L (136-145); Total Protein 5.9 g/dL (5.7-8.2)
[2024-08-29 09:00] VITALS: BP 101/60; PULSE 54; RESP 20; TEMP 98.1; O2SAT 100
--- NOTE | 2024-08-29 12:23 | DVHPN2 ---
Progress Note Date Seen: Aug 29, 2024 Medical Necessity Reason Pt with a Central, PICC or Fol: No Subjective Review of Systems: CVS:Normal, RESPIRATORY:Normal, GI:Normal, :Normal, NEURO:Normal Objective vital signs Vital Sign Date Time Temp Pulse Resp B/P (MAP) Pulse Ox O2 Delivery O2 Flow Rate FiO2 08/29/24 09:00 98.1 54 20 101/60 (74) 100 98.1 08/28/24 20:00 Room Air* 0 21 Total Intake and Output 08/28/24 08/28/24 08/29/24 15:00 23:00 07:00 Intake Total 525 ml 200 ml 1175 ml Output Total 200 ml Balance 525 ml 200 ml 975 ml medications Current Medications Medications Dose Ordered Sig/Janet Route Start Time Stop Time Status Last Admin Dose Admin Sodium Chloride 10 ml Q8HR IV 08/28/24 06:00 08/29/24 04:58 10 ML Sodium Chloride 1,000 ml @ 75 mls/hr [id number] IV 08/28/24 04:30 08/29/24 05:32 75 MLS/HR Acetaminophen 325 mg Q4HP PRN PO 08/28/24 04:30 Acetaminophen/ Hydrocodone Bitart 1 tab Q4HP PRN PO 08/28/24 04:30 Ondansetron HCl 4 mg Q4HP PRN IV 08/28/24 04:30 Morphine Sulfate 2 mg Q4HPRN PRN IV 08/28/24 04:30 Nitroglycerin 0.4 mg Q5MINP PRN SL 08/28/24 04:30 Morphine Sulfate 2 mg Q30M PRN IV 08/28/24 04:30 Clotrimazole 1 applic BID TOP 08/28/24 10:00 08/29/24 10:34 1 APPLIC Examination: GENERAL:Normal, NECK:Normal, ABDOMEN:Normal, SKIN:Normal, NEURO:Normal laboratory and microbiology Laboratory Tests 08/29/24 06:30 Test 08/29/24 06:30 Range/Units Serum Glucose 84 74-106 mg/dL Microbiology Date/Time Source Procedure Growth Status 08/28/24 06:55 Voided Urine Urine Culture - Preliminary Resulted Labs and/or images reviewed: Labs reviewed by me, Image(s) reviewed by me Problem List/Assessment/Plan Problem List/Assessment/Plan 1. Acute cystitis with hematuria IV antibiotics, pending urine culture 2. Ringworm to thigh Clotrimazole cream 3. Intractable nausea and vomiting likely secondary to cannabis induced hyperemesis IV fluids, GI consult, supportive care, pending hepatitis panel 4. Leukocytosis no sepsis no sirs likely from inflammation Monitor 5. Abdominal pain likely gastritis Start PPI Subjective: Patient is awake and alert Objective: Patient was admitted for intractable nausea and vomiting which is likely related to cannabis induced hyperemesis. Abdominal ultrasound showed concerns for acute hepatitis however LFTs are mildly elevated, hepatitis is unlikely. Hepatitis panel is still pending. Patient was also found to have acute cystitis and is on IV Rocephin. Patient was seen by GI who was recommending HIDA scan if pain continues. Plan: GI consult appreciated, we will consider HIDA scan, add PPI continue IV fluids and IV antibiotics, continue supportive care, awaiting hepatitis panel and urine culture Plan discussed with: Patient Date of Service: Aug 29, 2024 Billing Provider: GIBSON RAMOS MD Common Visit Codes: [id number] INP/OBS CARE (MOD) TEQUILA MURRAY INDUSTRIAL TRAINING SPECIALIST Aug 29, 2024 12:23
[2024-08-29 13:00] VITALS: BP 113/66; PULSE 50; RESP 20; TEMP 98.3; O2SAT 99
--- NOTE | 2024-08-29 15:50 | DVHPN2 ---
Progress Note - Dictate Date Seen: Aug 29, 2024 Medical Necessity Reason Pt with a Central, PICC or Fol: No Subjective No new complaints Patient is feeling better She is tolerating a clear liquid diet There was no further nausea vomiting and abdominal pain has resolved vital signs Vital Sign Date Time Temp Pulse Resp B/P (MAP) Pulse Ox O2 Delivery O2 Flow Rate FiO2 08/29/24 13:00 98.3 50 20 113/66 (82) 99 98.3 08/28/24 20:00 Room Air* 0 21 Total Intake and Output 08/28/24 08/28/24 08/29/24 15:00 23:00 07:00 Intake Total 525 ml 200 ml 1175 ml Output Total 200 ml Balance 525 ml 200 ml 975 ml medications Current Medications Medications Dose Ordered Sig/Janet Route Start Time Stop Time Status Last Admin Dose Admin Sodium Chloride 10 ml Q8HR IV 08/28/24 06:00 08/29/24 14:23 10 ML Sodium Chloride 1,000 ml @ 75 mls/hr [id number] IV 08/28/24 04:30 08/29/24 05:32 75 MLS/HR Acetaminophen 325 mg Q4HP PRN PO 08/28/24 04:30 Acetaminophen/ Hydrocodone Bitart 1 tab Q4HP PRN PO 08/28/24 04:30 Ondansetron HCl 4 mg Q4HP PRN IV 08/28/24 04:30 Morphine Sulfate 2 mg Q4HPRN PRN IV 08/28/24 04:30 Nitroglycerin 0.4 mg Q5MINP PRN SL 08/28/24 04:30 Morphine Sulfate 2 mg Q30M PRN IV 08/28/24 04:30 Clotrimazole 1 applic BID TOP 08/28/24 10:00 08/29/24 10:34 1 APPLIC Pantoprazole Sodium 40 mg DAILY@0600 PO 08/30/24 06:00 objective General Appearance: Alert, Oriented X3, Cooperative, Mild distress HEENT: Atraumatic, PERRLA, EOMI, Mucous membrane moist/pink Respiratory: Clear to auscultation, Normal air movement Cardiovascular: Regular rate, Normal S1, Normal S2, No murmurs, no chest wall tenderness Abdominal: Normal bowel sounds, Soft, No tenderness, No hepatospenomegaly, No masses Extremities: No clubbing, No cyanosis, No edema, Normal pulses, No tenderness/swelling Skin: Circular lesion in the front of the right thigh, No breakdown, No significant lesion Neuro: Normal gait, Normal speech, Strength at 5/5 X4 ext, Normal tone, Sensation intact. Psych/Mental Status: Mental status NL, Mood NL laboratory and microbiology Laboratory Tests 08/29/24 06:30 Test 08/29/24 06:30 Range/Units Serum Glucose 84 74-106 mg/dL Problems(with codes): (1) Elevated ALT measurement (2) Gallbladder polyp (3) Leukocytosis (4) GERD with esophagitis (5) Midsternal chest pain (6) Nausea (7) Epigastric pain (8) Anxiety Prognosis A/Plan Small gallbladder polyp versus gallbladder stone without evidence of acute cholecystitis Will schedule HIDA scan; patient on IV hydration and IV antibiotics Likely nausea vomiting related to cyclical vomiting syndrome from marijuana use; patient counseled about discontinuing marijuana Possible acute gastritis; treat with PPI; Zofran as needed, once symptoms improve we will advance as tolerated Mild elevation in ALT: Hepatitis panel pending, check JANKI, monitor labs Outpatient follow up with me in 4-6 after discharge for continued observation of her GI symptoms, gallbladder polyp and liver issues Plan discussed with: Patient, Other (Father) CAROLINA CALDERON MD Aug 29, 2024 15:50
[2024-08-29 17:00] VITALS: BP 122/60; PULSE 63; RESP 20; TEMP 98.7; O2SAT 98
[2024-08-29 21:00] VITALS: BP 112/66; PULSE 85; RESP 16; TEMP 98.3; O2SAT 98
[2024-08-30] VITALS (7 sets, daily range): BP systolic 107–122; BP diastolic 65–72; PULSE 53–64; RESP 15–18; TEMP 97.9–98.6; O2SAT 97–100
[2024-08-30] MEDS: PANTOPRAZOLE 40 MG TAB PO SCH (05:11)
[2024-08-30 09:01] LABS: Hepatitis B Core Total AB Negative (Negative)
[2024-08-30 09:38] LABS: Hepatitis A Total Antibody Positive (Negative); Hepatitis B Surface Antibody Negative (Negative); Hepatitis B Surface Antigen Negative (Negative); Hepatitis C Antibody Negative (Negative)
[2024-08-30 10:17] LABS: Hepatitis B Surface Antigen Negative (Negative)
[2024-08-30 10:29] LABS: Hepatitis C Antibody Negative (Negative)
--- NOTE | 2024-08-30 13:24 | DVH ---
Procedure: NM NM HIDA SCAN Exam Date: 08/30/2024 08:05 AM Clinical History: n/v/gallstone neck of GB Comparison Study: None Nuclear Medicine Hepatobiliary Scan. Technique: Following the intravenous administration of 6 mCi of technetium 99m labeled Choletec multiple planar abdominal planar images were obtained in anterior projection in 5 minute intervals for45 minutes . Ri ght lateral images were obtained at 45 minutes after injection. Findings: The liver appears grossly normal in size. There is no abnormal persistence of the cardiac or blood po ol activity. There is prompt visualization of the gallbladder . There is delayed passage of radionucl pepe into the small bowel seen on the 4 hour image Impression: 1. No evidence cystic duct obstruction. Delayed excretion into the bowel raising question of partial mechanical or functional distal common bile duct obstruction. May consider MRI MRCP for further evalu ation
--- NOTE | 2024-08-30 13:39 | ECG ---
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
--- NOTE | 2024-08-30 18:37 | DVHPN2 ---
Progress Note - Dictate Date Seen: Aug 30, 2024 Medical Necessity Reason Pt with a Central, PICC or Fol: No Subjective No new complaints Patient is feeling better She is tolerating a soft diet There was no further nausea vomiting and abdominal pain has resolved vital signs Vital Sign Date Time Temp Pulse Resp B/P (MAP) Pulse Ox O2 Delivery O2 Flow Rate FiO2 08/30/24 17:00 98.3 64 15 122/72 (89) 97 98.3 08/30/24 08:00 Room Air* 0 21 Total Intake and Output 08/29/24 08/29/24 08/30/24 15:00 23:00 07:00 Intake Total 300 ml 1384 ml Balance 300 ml 1384 ml medications Current Medications Medications Dose Ordered Sig/Janet Route Start Time Stop Time Status Last Admin Dose Admin Sodium Chloride 10 ml Q8HR IV 08/28/24 06:00 08/30/24 14:00 10 ML Sodium Chloride 1,000 ml @ 75 mls/hr [id number] IV 08/28/24 04:30 08/30/24 01:47 75 MLS/HR Acetaminophen 325 mg Q4HP PRN PO 08/28/24 04:30 Acetaminophen/ Hydrocodone Bitart 1 tab Q4HP PRN PO 08/28/24 04:30 Ondansetron HCl 4 mg Q4HP PRN IV 08/28/24 04:30 Morphine Sulfate 2 mg Q4HPRN PRN IV 08/28/24 04:30 Nitroglycerin 0.4 mg Q5MINP PRN SL 08/28/24 04:30 Morphine Sulfate 2 mg Q30M PRN IV 08/28/24 04:30 Clotrimazole 1 applic BID TOP 08/28/24 10:00 08/30/24 10:00 1 APPLIC Pantoprazole Sodium 40 mg DAILY@0600 PO 08/30/24 06:00 08/30/24 05:11 40 MG objective General Appearance: Alert, Oriented X3, Cooperative, Mild distress HEENT: Atraumatic, PERRLA, EOMI, Mucous membrane moist/pink Respiratory: Clear to auscultation, Normal air movement Cardiovascular: Regular rate, Normal S1, Normal S2, No murmurs, no chest wall tenderness Abdominal: Normal bowel sounds, Soft, No tenderness, No hepatospenomegaly, No masses Extremities: No clubbing, No cyanosis, No edema, Normal pulses, No tenderness/swelling Skin: Circular lesion in the front of the right thigh, No breakdown, No significant lesion Neuro: Normal gait, Normal speech, Strength at 5/5 X4 ext, Normal tone, Sensation intact. Psych/Mental Status: Mental status NL, Mood NL laboratory and microbiology Laboratory Tests 08/29/24 06:30 Test 08/29/24 06:30 Range/Units Serum Glucose 84 74-106 mg/dL HIDA Scan negative Impression: 1. No evidence cystic duct obstruction. Delayed excretion into the bowel raising question of partial mechanical or functional distal common bile duct obstruction. May consider MRI MRCP for further evaluation Problems(with codes): (1) Elevated ALT measurement (2) Gallbladder polyp (3) Leukocytosis (4) GERD with esophagitis (5) Nausea (6) Epigastric pain (7) Anxiety Prognosis Plan Soft mechanical diet HIDA scan is essentially negative Delayed excretion likely functional due to use of marijuana and narcotics Liver enzymes are normal and at this time patient does not need an MRCP I will follow this patient as an outpatient in 2-4 weeks after discharge Patient has been counseled about discontinuing marijuana Plan discussed with: Other (Nurse ) CAROLINA CALDERON MD Aug 30, 2024 18:37
--- NOTE | 2024-08-30 20:01 | DVHPN2 ---
Progress Note - Dictate Date Seen: Aug 30, 2024 Medical Necessity Reason Pt with a Central, PICC or Fol: No vital signs Vital Sign Date Time Temp Pulse Resp B/P (MAP) Pulse Ox O2 Delivery O2 Flow Rate FiO2 08/30/24 17:00 98.3 64 15 122/72 (89) 97 98.3 08/30/24 08:00 Room Air* 0 21 Total Intake and Output 08/29/24 08/29/24 08/30/24 14:59 22:59 06:59 Intake Total 300 ml 1384 ml Balance 300 ml 1384 ml medications Current Medications Medications Dose Ordered Sig/Janet Route Start Time Stop Time Status Last Admin Dose Admin Sodium Chloride 10 ml Q8HR IV 08/28/24 06:00 08/30/24 14:00 Sodium Chloride 1,000 ml @ 75 mls/hr [id number] IV 08/28/24 04:30 08/30/24 01:47 Acetaminophen 325 mg Q4HP PRN PO 08/28/24 04:30 Acetaminophen/ Hydrocodone Bitart 1 tab Q4HP PRN PO 08/28/24 04:30 Ondansetron HCl 4 mg Q4HP PRN IV 08/28/24 04:30 Morphine Sulfate 2 mg Q4HPRN PRN IV 08/28/24 04:30 Nitroglycerin 0.4 mg Q5MINP PRN SL 08/28/24 04:30 Morphine Sulfate 2 mg Q30M PRN IV 08/28/24 04:30 Clotrimazole 1 applic BID TOP 08/28/24 10:00 08/30/24 10:00 Pantoprazole Sodium 40 mg DAILY@0600 PO 08/30/24 06:00 08/30/24 05:11 objective General Appearance: alert, no distress HEENT: EOMI, PERRLA, normal external inspect of ears, no icterus, no nasal drainage Neck: no carotid bruit, no jugular venous distention (JVD), no lymphadenopathy Chest: normal thorax Respiratory: clear to auscultation, normal air movement Cardiovascular: regular rate and rhythm, no diastolic murmur, no jugular venous distention (JVD), no rub, no systolic murmur Abdominal: soft, no hepatomegaly, no mass, no splenomegaly, no tenderness Genitourinary: grossly normal external Musculoskeletal: no joint tenderness, no swelling Extremities: normal pulses, no calf tenderness, no clubbing, no cyanosis, no edema Skin: no bruising, no jaundice, no rash Neurological: alert, No focal deficit laboratory and microbiology Laboratory Tests 08/29/24 06:30 Test 08/29/24 06:30 Range/Units Serum Glucose 84 74-106 mg/dL Problem List # Intractable nausea and vomiting likely secondary to hepatitis/diverticulitis - Patient is on clear liquid diet and will advanced the diet as tolerated - WBC count is elevated with left shift - IV normal saline at 75 mL/hour - IV ondansetron 4 mg q.4 p.r.n. - U/S of GB revealed polyp versus possible stone in the neck of the gallbladder without any sign of cholecystitis . - Ordered hepatitis panel to rule out acute hepatitis - ALT is mildly elevated and will recheck CMP on 08/29/24 # Possible acute cystitis - Ordered another U/A to rule out UTI - Ordered urine bacterial culture # Fungal infection possible ringworm in the thigh - Clotrimazole topical ointment, apply in the affected area b.i.d Assessment/Plan Subjective: Patient is awake and alert. Objective: Patient was admitted for abdominal pain, ultrasound imaging showed possible hepatitis. Hepatitis panel is pending. HIDA scan was done, results are still not resulted. Plan: Continue current treatment. GI recommendations appreciated. Advance diet per GI. DC planning possibly for tomorrow if cleared by GI. Plan discussed with: Patient, Other CARLOS FINCH NP Aug 30, 2024 20:01
[2024-08-31] VITALS (7 sets, daily range): BP systolic 106–129; BP diastolic 50–77; PULSE 47–65; RESP 16–19; TEMP 97.8–98.8; O2SAT 97–100
--- NOTE | 2024-08-31 12:00 | DVHDS2 ---
Discharge Summary Date of Admission Aug 28, 2024 at 04:30 Date of Discharge: Aug 31, 2024 Labs/Diagnostic Data: Laboratory Results Test 08/29/24 06:30 08/28/24 16:17 08/28/24 06:17 08/28/24 06:05 White Blood Count 7.0 10^3/uL (4.4-10.8) Red Blood Count 4.03 10^6/uL (4.0-5.20) Hemoglobin 13.1 g/dL (12.2-16.2) Hematocrit 38.3 % (36.0-46.0) Mean Corpuscular Volume 95.2 fL (80.0-100.0) Mean Corpuscular Hemoglobin 32.6 pg (28.0-32.0) Mean Corpuscular Hemoglobin Concent 34.2 g/dL (32.0-36.0) Red Cell Distribution Width 12.7 % (11.8-14.3) Platelet Count 250 10^3/uL (140-450) Mean Platelet Volume 8.3 fL (6.9-10.8) Neutrophils (%) (Auto) 59.0 % (37.0-80.0) Lymphocytes (%) (Auto) 32.0 % (10.0-50.0) Monocytes (%) (Auto) 7.6 % (0.0-12.0) Eosinophils (%) (Auto) 0.5 % (0.0-7.0) Basophils (%) (Auto) 0.9 % (0.0-2.0) Neutrophils # (Auto) 4.1 10 ^3/uL (1.6-8.6) Lymphocytes # (Auto) 2.2 10 ^3/uL (0.4-5.4) Monocytes # (Auto) 0.5 10 ^3/uL (0-1.3) Eosinophils # (Auto) 0 10 ^3/uL (0-0.8) Basophils # (Auto) 0.1 10 ^3/uL (0-0.2) Nucleated Red Blood Cells 0.0 % Sodium Level 144 mmol/L (136-145) Potassium Level 4.4 mmol/L (3.5-5.1) Chloride Level 113 mmol/L (98-107) Carbon Dioxide Level 27 mmol/L (20-31) Anion Gap 4 (5-15) Blood Urea Nitrogen 10 mg/dL (9-23) Creatinine 0.79 mg/dL (0.550-1.02) Glomerular Filtration Rate Calc 108 mL/min (>90) BUN/Creatinine Ratio 12.7 (10.0-20.0) Serum Glucose 84 mg/dL (74-106) Calcium Level 9.1 mg/dL (8.7-10.4) Total Bilirubin 0.8 mg/dL (0.2-1.0) Aspartate Amino Transferase (AST) 15 U/L (13-40) Alanine Aminotransferase (ALT) 32 U/L (7-40) Alkaline Phosphatase 44 U/L (46-116) Total Protein 5.9 g/dL (5.7-8.2) Albumin 3.7 g/dL (3.2-4.8) Free Thyroxine (T4) Calculated 1.32 ng/dL (0.89-1.76) Hemoglobin A1c 4.9 % A1C (<5.7) Vitamin B12 Level 876 pg/mL (211-911) Vitamin D 25-Hydroxy 18.2 ng/mL (30.0-100) Hepatitis B Surface Antigen Negative (Negative) Hepatitis C Antibody Negative (Negative) Influenza Type A Antigen Negative (Negative) Influenza Type B Antigen Negative (Negative) SARS-CoV-2 Antigen (Rapid) Negative (NEGATIVE) Test 08/28/24 01:57 08/28/24 01:27 08/27/24 23:12 08/27/24 23:00 Thyroid Stimulating Hormone (TSH) 0.27 uIU/mL (0.55-4.78) Hepatitis A Antibody Total Positive (Negative) Hepatitis B Surface Antibody Negative (Negative) Hepatitis B Core Total Antibody Negative (Negative) Differential Total Cells Counted 100.0 (100) Neutrophils % (Manual) 94 (37.0-80.0) Band Neutrophils % (Manual) 1 Lymphocytes % (Manual) 3 (10.0-50.0) Monocytes % (Manual) 1 (0-12) Eosinophils % (Manual) 0 (0-7) Basophils % (Manual) 0 (0.0-2.0) Metamyelocytes % (manual) 0 Myelocytes % (Manual) 0 Promyelocytes % (Manual) 0 Blast Cells % (Manual) 0 Reactive Lymphocytes 1 Smudge Cells 3 /100 WBC Platelet Estimate Adequate Lipase 27 U/L (12-53) Urine Color Light-brown (Yellow) Urine Clarity Turbid (Clear) Urine pH 5.5 (5.0-9.0) Urine Specific Plato 1.031 (1.001-1.035) Urine Protein 2+ (Negative) Urine Ketones 4+ (Negative) Urine Blood 3+ /uL (Negative) Urine Nitrite Negative (Negative) Urine Bilirubin Negative (Negative) Urine Urobilinogen Normal mg/dL (Negative) Urine Leukocyte Esterase 2+ /uL (Negative) Urine RBC 126 /hpf (0 - 4) Urine WBC 51 /hpf (0 - 5) Urine Squamous Epithelial Cells Few /hpf (<5) Urine Bacteria Few /hpf (None Seen) Urine Hyaline Casts Few /lpf (0 - 2) Urine Mucus Few (None Seen) Urine Glucose Normal mg/dL (Normal) Urine Test Negative (Negative) Urine Opiates Screen Neg (NEGATIVE) Urine Fentanyl Screen Neg (NEGATIVE) Urine Barbiturates Screen Neg (NEGATIVE) Urine Phencyclidine Screen Neg (NEGATIVE) Urine Amphetamines Screen Neg (NEGATIVE) Urine Benzodiazepines Screen Neg (NEGATIVE) Urine Cocaine Screen Neg (NEGATIVE) Urine Cannabinoids Screen Pos (NEGATIVE) Other Laboratory Tests 08/29/24 06:30 Brief Hx & Hospital Course: Patient was admitted for abdominal pain. Patient has slightly elevated ALT levels. Patient was seen by gastroenterology. Liver enzymes are now currently within normal limits. Patient was positive for cannabis. Imaging showed a gallbladder polyp. No evidence of cystic duct obstruction. They did a HIDA scan was negative for acute cholecystitis. Patient was found to have GERD and esophagitis. Radiology did recommend possible MRCP outpatient. Patient will follow-up with her PCP in 1 week. She will get a referral to follow-up with gastroenterology for MRCP. Patient denied any need for PPI at this time. Patient currently not on any home medications. The patient received proper medical treatment and medications. Vital signs, Imaging and Laboratory Work was monitored daily. All consults recommendations were followed as provided. There were no complaints or new complaints upon discharge, all questions and concerns were answered. Patient was advised to return to the ER or call 911 if any headaches, dizziness, shortness of breath, chest pain, bleeding, fevers, or worsening of medical condition. Patient/Family was counseled about treatment plan, medications, possible side effects, patient verbalized understanding. All questions were answered to the best of my ability. The patient symptoms improved and they are okay to be DC. Condition at Discharge: Stable Final Diagnosis/Problems List Intractable nausea and vomiting likely secondary to hepatitis/diverticulitis Possible acute cystitis Fungal infection possible ringworm in the thigh Discharge Disposition: Home Discharge Statement: "Patient was advised to return to the ER or call 911 if any headaches, dizziness, shortness of breath, chest pain, abdominal pain, bleeding, fevers, or worsening of medical condition. Patient was counseled about treatment plan, medications, possible side effects, patientverbalized understanding. All questions were answered to the best of my ability. This discharge took greater then 30 minutes in planning, reviewing documentation, counseling the patient, and discussing with other team members." ASSESSMENT ASSESSMENT Assessment CARLOS FINCH NP Aug 31, 2024 12:00
--- NOTE | 2024-08-31 20:04 | DVHPN2 ---
Progress Note - Dictate Date Seen: Aug 31, 2024 (Late entryPatient seen at 7:00 a.m.) Medical Necessity Reason Pt with a Central, PICC or Fol: No Subjective No new complaints Patient is sleeping comfortably Patient is feeling better She is tolerating a soft diet There was no further nausea vomiting and abdominal pain has resolved vital signs Vital Sign Date Time Temp Pulse Resp B/P (MAP) Pulse Ox O2 Delivery O2 Flow Rate FiO2 08/31/24 16:55 98.8 65 16 128/77 (94) 98 98.8 08/31/24 08:00 Room Air* 0 21 Total Intake and Output 08/30/24 08/30/24 08/31/24 15:00 23:00 07:00 Intake Total 150 ml 340 ml 575 ml Balance 150 ml 340 ml 575 ml objective General Appearance: Alert, Oriented X3, Cooperative, Mild distress HEENT: Atraumatic, PERRLA, EOMI, Mucous membrane moist/pink Respiratory: Clear to auscultation, Normal air movement Cardiovascular: Regular rate, Normal S1, Normal S2, No murmurs, no chest wall tenderness Abdominal: Normal bowel sounds, Soft, No tenderness, No hepatospenomegaly, No masses Extremities: No clubbing, No cyanosis, No edema, Normal pulses, No tenderness/swelling Skin: Circular lesion in the front of the right thigh, No breakdown, No significant lesion Neuro: Normal gait, Normal speech, Strength at 5/5 X4 ext, Normal tone, Sensation intact. 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
== END 2024-08-31 17:45 | disposition home or self-care (01) | DRG 244 ==
LOC: ER 22:46 → OVERFLOW 08-28 04:30 → EAST 08-28 15:33 → WEST WING 08-29 17:50
PROVIDERS: ADMIT Nurse Practitioner Family; ATTEND Nurse Practitioner
DX: K57.32 Diverticulitis of large intestine without perforation or abscess without bleeding (principal); N30.01 Acute cystitis with hematuria; K75.9 Inflammatory liver disease, unspecified; Z20.822 Contact with and (suspected) exposure to COVID-19; B35.8 Other dermatophytoses; K21.00 Gastro-esophageal reflux disease with esophagitis, without bleeding; K82.4 Cholesterolosis of gallbladder; F41.9 Anxiety disorder, unspecified; Z79.899 Other long term (current) drug therapy
CPT/HCPCS: 36415; 71045; 78226; 80048; 80053; 80307; 81001; 81025; 82306; 82607; 83036; 83690; 84439; 84443; 85007; 85025; 85027; 86704; 86706; 86708; 86803; 87086; 87340; 87426; 87804; 93005; 99291; G0378; J2405; J3490